=== PATIENT | female | born 1955 | race Caucasian/White ===

== ENCOUNTER → 2022-12-28 | Outpatient (CLI) | payer OTHER ==
[~2022-12-28] MED LIST: CARV3.125; CLIM.025TP; Omeprazole20 M1; SIMV5
== END | disposition home or self-care (01) ==
LOC: LAB 13:12 → LAB SHORT 13:12
DX: N89.8 Other specified noninflammatory disorders of vagina (principal)
CPT/HCPCS: 87070; 87075; 87077; 87147; 87186; 87205

== ENCOUNTER → 2023-03-21 | Outpatient (CLI) | payer OTHER | END | disposition home or self-care (01) | LOC: LAB 16:00 → LAB SHORT 16:00 | DX: H60.93 Unspecified otitis externa, bilateral (principal) | CPT/HCPCS: 87102 ==